=== PATIENT | male | born 1935 | race Caucasian/White ===

== ENCOUNTER 2016-07-08 15:52 | Emergency (ER) | payer MEDICARE | END 2016-07-08 17:13 | disposition home or self-care (01) | LOC: ER1 15:52 | DX: S61.211A Laceration without foreign body of left index finger without damage to nail, initial encounter (principal); I10 Essential (primary) hypertension; I25.10 Atherosclerotic heart disease of native coronary artery without angina pectoris; C91.10 Chronic lymphocytic leukemia of B-cell type not having achieved remission; Z23 Encounter for immunization; W29.8XXA Contact with other powered hand tools and household machinery, initial encounter; Y92.009 Unspecified place in unspecified non-institutional (private) residence as the place of occurrence of the external cause; Z79.82 Long term (current) use of aspirin; Z79.899 Other long term (current) drug therapy | CPT/HCPCS: 12001; 90471; 90714; 99283 ==

== ENCOUNTER 2016-07-15 14:11 | Emergency (ER) | payer MEDICARE | END 2016-07-15 14:50 | disposition home or self-care (01) | LOC: ER1 14:11 | DX: Z48.02 Encounter for removal of sutures (principal); I10 Essential (primary) hypertension | CPT/HCPCS: 99281 ==

== ENCOUNTER → 2016-07-28 | Outpatient (CLI) | payer MEDICARE ==
[2016-07-28 08:37] LABS: BUN/CREATININE RATIO 10 (0-10)
== END ==
LOC: LAB 08:00
PROVIDERS: Internal Medicine Nephrology
DX: I10 Essential (primary) hypertension (principal)
CPT/HCPCS: 36415; 80048

== ENCOUNTER → 2016-09-10 | Outpatient (CLI) | payer MEDICARE | LOC: KOH-I 13:42 | DX: R60.0 Localized edema (principal); M79.621 Pain in right upper arm; C91.10 Chronic lymphocytic leukemia of B-cell type not having achieved remission; R05 Cough; D81.9 Combined immunodeficiency, unspecified | CPT/HCPCS: 93971 ==

== ENCOUNTER → 2016-09-29 | Outpatient (CLI) | payer MEDICARE ==
[2016-09-29 08:01] LABS: BUN/CREATININE RATIO 12 (0-10)
== END ==
LOC: LAB 07:10
PROVIDERS: Internal Medicine Nephrology
DX: I10 Essential (primary) hypertension (principal); R60.9 Edema, unspecified
CPT/HCPCS: 36415; 80048

== ENCOUNTER → 2020-04-04 | Outpatient (CLI) | payer MEDICARE ==
[2020-04-04 09:20] LABS: BUN/CREATININE RATIO 12 (0-10)
== END ==
LOC: LAB 08:18
PROVIDERS: Family Medicine
DX: I10 Essential (primary) hypertension (principal); E87.6 Hypokalemia
CPT/HCPCS: 36415; 80053

== ENCOUNTER → 2020-08-27 | Outpatient (CLI) | payer MEDICARE | LOC: ECHO 13:00 | DX: I25.10 Atherosclerotic heart disease of native coronary artery without angina pectoris (principal); I08.3 Combined rheumatic disorders of mitral, aortic and tricuspid valves | CPT/HCPCS: ECHO; 93306 ==

== ENCOUNTER → 2020-10-17 | Outpatient (CLI) | payer MEDICARE ==
[~2020-10-17] MED LIST: ZOFRAN ODT 4 MG4 MG GT
== END ==
LOC: LAB 08:37
PROVIDERS: Family Medicine
DX: E87.0 Hyperosmolality and hypernatremia (principal)
CPT/HCPCS: 36415; 80048

== ENCOUNTER 2020-12-11 16:53 | Emergency (ER) | payer MEDICARE ==
[2020-12-11 17:39] LABS: HEMOGLOBIN 11.9 gm/dl (14.0-17.5); RED BLOOD COUNT 4.14 M/UL (4.20-5.50); WHITE BLOOD COUNT 7.6 K/UL (4.5-11.0)
[2020-12-11 18:04] LABS: BUN/CREATININE RATIO 17 (0-10)
[2020-12-12] MEDS ORDERED: ZOFRAN ODT 4 MG4 MG GT (00:01)
== END 2020-12-12 00:10 | disposition home or self-care (01) ==
LOC: ER1 16:53
PROVIDERS: Physician Assistant
DX: U07.1 COVID-19 (principal); I10 Essential (primary) hypertension; C95.90 Leukemia, unspecified not having achieved remission
CPT/HCPCS: 71045; 80053; 81001; 82550; 82553; 83615; 83874; 84484; 85025; 86140; 93005; 99284; U0002

== ENCOUNTER 2020-12-13 14:56 | Emergency (ER) | payer MEDICARE ==
[~2020-12-13] VITALS: Ht 182.9 cm; Wt 104.3 kg
== END 2020-12-13 18:20 | disposition home or self-care (01) ==
LOC: ER1 14:56
DX: Z23 Encounter for immunization (principal); U07.1 COVID-19
CPT/HCPCS: 99283; M0243

== ENCOUNTER 2021-01-16 12:23 | Emergency (ER) | payer MEDICARE ==
[2021-01-16 13:06] LABS: HEMOGLOBIN 12.1 gm/dl (14.0-17.5); WHITE BLOOD COUNT 12.6 K/UL (4.5-11.0)
[2021-01-16 13:40] LABS: BUN/CREATININE RATIO 15 (0-10)
[2021-01-16] MEDS ORDERED: OMNICEF 300 MG300 MG PO (15:22)
[2021-01-16] MEDS ORDERED: ZITHROMAX250 MG PO (15:22)
== END 2021-01-16 15:40 | disposition home or self-care (01) ==
LOC: ER1 12:23
PROVIDERS: Physician Assistant
DX: J18.9 Pneumonia, unspecified organism (principal); I10 Essential (primary) hypertension
CPT/HCPCS: 71046; 80053; 85025; 99284

== ENCOUNTER → 2021-02-05 | Outpatient (CLI) | payer MEDICARE ==
[~2021-02-05] MED LIST changes: +OMNICEF 300 MG300 MG PO; +ZITHROMAX250 MG PO
== END ==
LOC: EXRD 08:32
DX: J18.9 Pneumonia, unspecified organism (principal)
CPT/HCPCS: 71046

== ENCOUNTER → 2021-03-20 | Outpatient (CLI) | payer MEDICARE | LOC: EXRD 14:09 | DX: R93.89 Abnormal findings on diagnostic imaging of other specified body structures (principal); U07.1 COVID-19; J12.82 Pneumonia due to coronavirus disease 2019; R91.8 Other nonspecific abnormal finding of lung field | CPT/HCPCS: 71046 ==

== ENCOUNTER 2021-05-10 07:07 | Inpatient (IN) | payer MEDICARE ==
[~2021-05-10] VITALS: Ht 182.9 cm; Wt 104.3 kg
[2021-05-10 08:23] LABS: HEMOGLOBIN 12.8 gm/dl (14.0-17.5); RED BLOOD COUNT 4.4 M/UL (4.20-5.50); WHITE BLOOD COUNT 9.4 K/UL (4.5-11.0)
[2021-05-10 09:06] LABS: BUN/CREATININE RATIO 18 (0-10)
[2021-05-10] MEDS ORDERED: IMBRUVICA280 MG PO (12:22)
[2021-05-10] MEDS ORDERED: HYDROCHLOROTH12.5 M1 PO (12:23)
[2021-05-10] MEDS ORDERED: METOPROLOL SUC200 MG PO (12:23)
[2021-05-10] MEDS ORDERED: AMLODIPINE BESYL5 MG PO (12:24)
[2021-05-10] MEDS ORDERED: POTASSIUM CHLO10 ME2 PO (12:24)
[2021-05-10] MEDS ORDERED: ATORVASTATIN CA80 MG PO (12:25)
[2021-05-10] MEDS ORDERED: LISINOPRIL30 MG PO (12:26)
[2021-05-10] MEDS ORDERED: VITAMIN B-121000 MCG PO (12:27)
[2021-05-10] MEDS ORDERED: VITAMIN C 500500 M1 PO (12:28)
[2021-05-10] MEDS ORDERED: CALTRATE 600 +1 EACH PO (12:29)
[2021-05-10] MEDS ORDERED: VITAMIN D310 MC1 PO (12:29)
[2021-05-10] MEDS ORDERED: CENTRUM CHEWAB1 EAC2 PO (12:30)
[2021-05-11 04:50] LABS: HEMOGLOBIN 11.8 gm/dl (14.0-17.5); RED BLOOD COUNT 3.98 M/UL (4.20-5.50); WHITE BLOOD COUNT 8.3 K/UL (4.5-11.0)
[2021-05-12 05:31] LABS: HEMOGLOBIN 12.3 gm/dl (14.0-17.5); RED BLOOD COUNT 4.14 M/UL (4.20-5.50); WHITE BLOOD COUNT 7.1 K/UL (4.5-11.0)
[2021-05-12 06:13] LABS: BUN/CREATININE RATIO 31 (0-10)
[2021-05-13 05:58] LABS: HEMOGLOBIN 11.6 gm/dl (14.0-17.5); RED BLOOD COUNT 3.92 M/UL (4.20-5.50)
[2021-05-13 06:04] LABS: WHITE BLOOD COUNT 9.7 K/UL (4.5-11.0)
[2021-05-13 06:23] LABS: BUN/CREATININE RATIO 39 (0-10)
--- NOTE | 2021-05-13 16:58 | NUR ---
ATTEMPTED TO CALL PATIENTS BACK AT THIS TIME WTIH NO ANSWER.
[2021-05-14 03:49] LABS: HEMOGLOBIN 12.2 gm/dl (14.0-17.5); RED BLOOD COUNT 4.25 M/UL (4.20-5.50)
[2021-05-14 03:57] LABS: WHITE BLOOD COUNT 14.7 K/UL (4.5-11.0)
--- NOTE | 2021-05-14 13:00 | NUR ---
PATIENT O2 SATURATION 88% ON ROOM AIR.
[2021-05-15 04:52] LABS: HEMOGLOBIN 10.8 gm/dl (14.0-17.5)
[2021-05-15 04:54] LABS: RED BLOOD COUNT 3.69 M/UL (4.20-5.50)
[2021-05-15 05:11] LABS: BUN/CREATININE RATIO 44 (0-10)
[2021-05-15] MEDS ORDERED: AZITHROMYCIN250 MG PO (10:47)
[2021-05-15] MEDS ORDERED: BUDESONIDE0.5 MG/2 M NEB (11:17)
[2021-05-15] MEDS ORDERED: IPRAT-ALBUT 0.5-3 ML INH (11:17)
[2021-05-15] MEDS ORDERED: DEXAMETHASONE2 MG PO (11:17)
== END 2021-05-15 15:42 | disposition home health service (06) | DRG 177 ==
LOC: ER1 07:07 → CDU 09:43 → M/S 09:43
PROVIDERS: Family Medicine; Internal Medicine; Physician Assistant Medical; ADMIT Internal Medicine
PROC: 8E0ZXY6 Isolation (ICD-10-PCS; principal; 2021-05-10)
PROC: XW033E5 Introduction of Remdesivir Anti-infective into Peripheral Vein, Percutaneous Approach, New Technology Group 5 (ICD-10-PCS; 2021-05-10)
PROC: 3E0333Z Introduction of Anti-inflammatory into Peripheral Vein, Percutaneous Approach (ICD-10-PCS; 2021-05-10)
PROC: 5A0945A Assistance with Respiratory Ventilation, 24-96 Consecutive Hours, High Flow/Velocity Cannula (ICD-10-PCS; 2021-05-11)
DX: U07.1 COVID-19 (principal); J12.82 Pneumonia due to coronavirus disease 2019; J96.01 Acute respiratory failure with hypoxia; C91.11 Chronic lymphocytic leukemia of B-cell type in remission; D84.9 Immunodeficiency, unspecified; I25.10 Atherosclerotic heart disease of native coronary artery without angina pectoris; E86.0 Dehydration; E78.5 Hyperlipidemia, unspecified; H91.90 Unspecified hearing loss, unspecified ear; E87.6 Hypokalemia; I12.9 Hypertensive chronic kidney disease with stage 1 through stage 4 chronic kidney disease, or unspecified chronic kidney disease; N18.30 Chronic kidney disease, stage 3 unspecified; Z95.1 Presence of aortocoronary bypass graft; Z98.41 Cataract extraction status, right eye; Z98.42 Cataract extraction status, left eye; Z98.890 Other specified postprocedural states; Z79.899 Other long term (current) drug therapy; Z86.16 Personal history of COVID-19
CPT/HCPCS: 36415; 36600; 71045; 71275; 80048; 80053; 81001; 82550; 82553; 82728; 82803; 83605; 83735; 83874; 83880; 84132; 84484; 85025; 85027; 85379; 86140; 87040; 87081; 93005; 94640; 94664; 94760; 96374; 97116-GP-CQ; 97162; 99285; J0248; J0696; J1100; J1205; J1650; J7030; Q9967; U0002

== ENCOUNTER 2021-05-22 16:25 | Inpatient (IN) | payer MEDICARE ==
[~2021-05-22] VITALS: Ht 182.9 cm; Wt 104.3 kg
[~2021-05-22 16:25] MED LIST changes: +AMLODIPINE BESYL5 MG PO; +ATORVASTATIN CA80 MG PO; +AZITHROMYCIN250 MG PO; +BUDESONIDE0.5 MG/2 M NEB; +CALTRATE 600 +1 EACH PO; +CENTRUM CHEWAB1 EAC2 PO; +DEXAMETHASONE2 MG PO; +HYDROCHLOROTH12.5 M1 PO; +IMBRUVICA280 MG PO; +IPRAT-ALBUT 0.5-3 ML INH; +LISINOPRIL30 MG PO; +METOPROLOL SUC200 MG PO; +POTASSIUM CHLO10 ME2 PO; +VITAMIN B-121000 MCG PO; +VITAMIN C 500500 M1 PO; +VITAMIN D310 MC1 PO
[2021-05-22 17:15] LABS: HEMOGLOBIN 12.4 gm/dl (14.0-17.5); RED BLOOD COUNT 4.26 M/UL (4.20-5.50); WHITE BLOOD COUNT 15.3 K/UL (4.5-11.0)
[2021-05-22 17:22] LABS: BUN/CREATININE RATIO 33 (0-10)
[2021-05-22 23:47] LABS: BORDETELLA PARAPERTUSSIS Not Detected (Not Detectd); BORDETELLA PERTUSSIS Not Detected (Not Detectd); CHLAMYDIA PNEUMONIAE Not Detected (Not Detectd); CORONAVIRUS HKU1 Not Detected (Not Detectd); CORONAVIRUS NL63 Not Detected (Not Detectd); CORONAVIRUS OC43 Not Detected (Not Detectd); CORONOAVIRUS 229E Not Detected (Not Detectd); HUMAN METAPNEUMOVIRUS Not Detected (Not Detectd); HUMAN RHINOVIRUS/ENTEROVIRUS Not Detected (Not Detectd); INFLUENZA A Not Detected (Not Detectd); INFLUENZA B Not Detected (Not Detectd); MYCOPLASMA PNEUMONIAE Not Detected (Not Detectd); PARAINFLUENZA VIRUS 1 Not Detected (Not Detectd); PARAINFLUENZA VIRUS 2 Not Detected (Not Detectd); PARAINFLUENZA VIRUS 3 Not Detected (Not Detectd); PARAINFLUENZA VIRUS 4 Not Detected (Not Detectd); RESPIRATORY SYNCYTIAL VIRUS Not Detected (Not Detectd)
[2021-05-23 00:47] LABS: SARS-CoV-2 DETECTED (Not Detectd)
[2021-05-23 03:43] LABS: HEMOGLOBIN 12.8 gm/dl (14.0-17.5); RED BLOOD COUNT 4.44 M/UL (4.20-5.50); WHITE BLOOD COUNT 16.3 K/UL (4.5-11.0)
[2021-05-24 06:12] LABS: HEMOGLOBIN 12.2 gm/dl (14.0-17.5); RED BLOOD COUNT 4.11 M/UL (4.20-5.50); WHITE BLOOD COUNT 17.9 K/UL (4.5-11.0)
[2021-05-25 03:12] LABS: HEMOGLOBIN 10.6 gm/dl (14.0-17.5)
[2021-05-25 03:13] LABS: RED BLOOD COUNT 3.61 M/UL (4.20-5.50)
[2021-05-25] MEDS ORDERED: LASIX20 MG PO (09:59)
[2021-05-25] MEDS ORDERED: DOXYCYCLINE HY100 MG PO (10:03)
[2021-05-25] MEDS ORDERED: CALTRATE 600 +1 EACH PO (10:03)
[2021-05-25] MEDS ORDERED: AMOX TR-K CLV1 EAC4 PO (10:03)
--- NOTE | 2021-05-25 19:34 | NUR ---
ATTEMPTED TO REINSERT NOLASCO CATHETER PER DR HERMAN RELATED TO NO URINE OUTPUT. UNABLE TO REINSERT AT THIS TIME. DR HERMAN AWARE.
[2021-05-26 02:59] LABS: BUN/CREATININE RATIO 39 (0-10)
[2021-05-28 04:57] LABS: HEMOGLOBIN 10.3 gm/dl (14.0-17.5); RED BLOOD COUNT 3.51 M/UL (4.20-5.50); WHITE BLOOD COUNT 9.5 K/UL (4.5-11.0)
[2021-05-29 06:15] LABS: RED BLOOD COUNT 3.75 M/UL (4.20-5.50); WHITE BLOOD COUNT 9.3 K/UL (4.5-11.0)
--- NOTE | 2021-05-29 18:05 | NUR ---
IS TEACHING, PT DEMONSTRATED WELL.
[2021-05-30 06:24] LABS: HEMOGLOBIN 9.8 gm/dl (14.0-17.5); WHITE BLOOD COUNT 10.6 K/UL (4.5-11.0)
[2021-05-30 06:25] LABS: RED BLOOD COUNT 3.37 M/UL (4.20-5.50)
[2021-05-31 04:19] LABS: HEMOGLOBIN 9.9 gm/dl (14.0-17.5); RED BLOOD COUNT 3.43 M/UL (4.20-5.50); WHITE BLOOD COUNT 11.8 K/UL (4.5-11.0)
[2021-06-01 04:09] LABS: HEMOGLOBIN 9.4 gm/dl (14.0-17.5); RED BLOOD COUNT 3.19 M/UL (4.20-5.50)
[2021-06-01 04:10] LABS: WHITE BLOOD COUNT 7.7 K/UL (4.5-11.0)
[2021-06-02 03:51] LABS: HEMOGLOBIN 9.8 gm/dl (14.0-17.5); RED BLOOD COUNT 3.4 M/UL (4.20-5.50)
[2021-06-03 06:09] LABS: HEMOGLOBIN 10.2 gm/dl (14.0-17.5); RED BLOOD COUNT 3.56 M/UL (4.20-5.50)
[2021-06-04 07:01] LABS: HEMOGLOBIN 10.9 gm/dl (14.0-17.5); RED BLOOD COUNT 3.82 M/UL (4.20-5.50); WHITE BLOOD COUNT 13.8 K/UL (4.5-11.0)
[2021-06-07] MEDS ORDERED: ACETAMINOPHEN500 MG PO (12:15)
[2021-06-07] MEDS ORDERED: STIMULANT LAXA1 EACH PO (12:15)
[2021-06-07] MEDS ORDERED: ATORVASTATIN CA20 MG PO (12:15)
[2021-06-07] MEDS ORDERED: PROTONIX 40 MG40 M1 PO (12:15)
[2021-06-07] MEDS ORDERED: FLOMAX 0.4 MG0.4 MG PO (12:19)
[2021-06-07] MEDS ORDERED: ELIQUIS 5 MG TAB5 MG PO (12:23)
== END 2021-06-07 12:18 | DRG 291 ==
LOC: ER1 16:25 → MED SURG 4 18:38 → CDU 18:38 → MED SURG 4 21:01
PROVIDERS: Emergency Medicine; Internal Medicine; Internal Medicine Infectious Disease; ADMIT Internal Medicine
PROC: 8E0ZXY6 Isolation (ICD-10-PCS; 2021-05-23)
PROC: B24BZZZ Ultrasonography of Heart with Aorta (ICD-10-PCS; 2021-05-23)
PROC: XW0DXF5 Introduction of Other New Technology Therapeutic Substance into Mouth and Pharynx, External Approach, New Technology Group 5 (ICD-10-PCS; 2021-05-24)
PROC: 5A0955A Assistance with Respiratory Ventilation, Greater than 96 Consecutive Hours, High Flow/Velocity Cannula (ICD-10-PCS; 2021-05-25)
PROC: 3E0333Z Introduction of Anti-inflammatory into Peripheral Vein, Percutaneous Approach (ICD-10-PCS; principal; 2021-05-31)
DX: I13.0 Hypertensive heart and chronic kidney disease with heart failure and stage 1 through stage 4 chronic kidney disease, or unspecified chronic kidney disease (principal); I50.33 Acute on chronic diastolic (congestive) heart failure; J96.21 Acute and chronic respiratory failure with hypoxia; J18.9 Pneumonia, unspecified organism; N17.9 Acute kidney failure, unspecified; C91.10 Chronic lymphocytic leukemia of B-cell type not having achieved remission; D84.9 Immunodeficiency, unspecified; U09.9 Post COVID-19 condition, unspecified; E88.09 Other disorders of plasma-protein metabolism, not elsewhere classified; I07.1 Rheumatic tricuspid insufficiency; N40.1 Benign prostatic hyperplasia with lower urinary tract symptoms; T50.2X5A Adverse effect of carbonic-anhydrase inhibitors, benzothiadiazides and other diuretics, initial encounter; R33.8 Other retention of urine; E66.9 Obesity, unspecified; E87.6 Hypokalemia; I44.0 Atrioventricular block, first degree; I89.0 Lymphedema, not elsewhere classified; R53.81 Other malaise; E78.5 Hyperlipidemia, unspecified; I25.10 Atherosclerotic heart disease of native coronary artery without angina pectoris; Z95.5 Presence of coronary angioplasty implant and graft; Z68.31 Body mass index [BMI] 31.0-31.9, adult; Z23 Encounter for immunization
CPT/HCPCS: ECHO; 0240U; 36415; 36600; 71045; 80048; 80053; 80076; 80202; 81001; 82533; 82550; 82553; 82803; 82962; 83605; 83735; 83874; 83880; 84100; 84132; 84439; 84443; 84484; 85025; 85027; 85379; 85610; 86140; 87040; 87081; 87633; 93005; 93306; 94640; 94760; 96372; 96374; 96376; 97110; 97110-GP-CQ; 97161; 97164; 97166; 97168; 97530; 97530-GP-CQ; 99285; G0378; J0692; J1100; J1205; J1650; J1940; J2020; J3370; J7070; P9047; Q9967; U0002

== ENCOUNTER 2021-08-21 19:02 | Emergency (ER) | payer MEDICARE ==
[~2021-08-21 19:02] MED LIST changes: +ACETAMINOPHEN500 MG PO; +AMOX TR-K CLV1 EAC4 PO; +ATORVASTATIN CA20 MG PO; +DOXYCYCLINE HY100 MG PO; +ELIQUIS 5 MG TAB5 MG PO; +FLOMAX 0.4 MG0.4 MG PO; +LASIX20 MG PO; +PROTONIX 40 MG40 M1 PO; +STIMULANT LAXA1 EACH PO
[2021-08-21] MEDS ORDERED: CEPHALEXIN500 M1 PO (20:08)
== END 2021-08-21 20:46 | disposition home or self-care (01) ==
LOC: ER1 19:02
DX: L03.221 Cellulitis of neck (principal)
CPT/HCPCS: 99283

== ENCOUNTER 2021-09-05 14:22 | Emergency (ER) | payer MEDICARE ==
[~2021-09-05 14:22] MED LIST changes: +CEPHALEXIN500 M1 PO
[2021-09-05 15:42] LABS: HEMOGLOBIN 10.4 gm/dl (14.0-17.5); RED BLOOD COUNT 3.56 M/UL (4.20-5.50); WHITE BLOOD COUNT 9.4 K/UL (4.5-11.0)
[2021-09-05 15:58] LABS: BUN/CREATININE RATIO 14 (0-10)
[2021-09-05] MEDS ORDERED: CEPHALEXIN500 M1 PO (21:30)
== END 2021-09-05 21:20 | disposition home or self-care (01) ==
LOC: ER1 14:22
PROVIDERS: Physician Assistant
DX: I89.0 Lymphedema, not elsewhere classified (principal); I10 Essential (primary) hypertension; Z87.891 Personal history of nicotine dependence
CPT/HCPCS: 71045; 80053; 82550; 82553; 83880; 84484; 85025; 93005; 99284

== ENCOUNTER → 2021-09-09 | Outpatient (CLI) | payer MEDICARE ==
[2021-09-09 12:43] LABS: BUN/CREATININE RATIO 15 (0-10)
== END ==
LOC: US 11:00
PROVIDERS: Family Medicine
DX: I10 Essential (primary) hypertension (principal); E83.42 Hypomagnesemia; C91.10 Chronic lymphocytic leukemia of B-cell type not having achieved remission; R05.9 Cough, unspecified; D81.9 Combined immunodeficiency, unspecified
CPT/HCPCS: 36415; 80053; 83735; 93970

== ENCOUNTER → 2021-09-25 | Outpatient (CLI) | payer MEDICARE | LOC: US 13:26 | DX: C91.10 Chronic lymphocytic leukemia of B-cell type not having achieved remission (principal) | CPT/HCPCS: 93970 ==

== ENCOUNTER 2021-10-01 19:08 | Emergency (ER) | payer MEDICARE | END 2021-10-01 20:29 | disposition home or self-care (01) | LOC: ER1 19:08 | DX: S00.83XA Contusion of other part of head, initial encounter (principal); I10 Essential (primary) hypertension; W06.XXXA Fall from bed, initial encounter | CPT/HCPCS: 70450; 72125; 99283 ==

== ENCOUNTER → 2021-10-10 | Outpatient (CLI) | payer MEDICARE | LOC: EXRD 08:00 | DX: R10.9 Unspecified abdominal pain (principal); N28.1 Cyst of kidney, acquired; R39.198 Other difficulties with micturition | CPT/HCPCS: 76775; 76857 ==

== ENCOUNTER → 2021-10-14 | Outpatient (CLI) | payer MEDICARE | LOC: HEART 5 07:55 | DX: I25.10 Atherosclerotic heart disease of native coronary artery without angina pectoris (principal); R06.02 Shortness of breath; I10 Essential (primary) hypertension | CPT/HCPCS: 78452; A9502; J2785 ==

== ENCOUNTER → 2021-11-28 | Outpatient (CLI) | payer MEDICARE | LOC: RAD 12:21 | DX: Z86.16 Personal history of COVID-19 (principal) | CPT/HCPCS: 71046; 94010 ==